=== PATIENT | male | born 1950 | race Caucasian/White ===

== ENCOUNTER → 2017-10-26 | Outpatient (CLI) | payer MEDICARE ==
--- NOTE | 2017-10-26 08:07 | US ---
EXAMINATION TYPE: [place] screen for AAA DATE OF EXAM: 10/26/2017 COMPARISON: NONE CLINICAL HISTORY: 66-year-old male Z13.6 Encounter for screening for cardiovascular. TECHNIQUE: Multiple sonographic images of the abdominal aorta are obtained. FINDINGS: Abdominal Aorta: Proximal: 2.3 x 2.3 cm Mid: 1.9 x 1.9 cm Distal: 1.8 x 2.1 cm Common iliac arteries: right 1.3 x 1.2 cm, left 1.2 x 1.3 cm IMPRESSION: Abdominal aorta without any significant ectasia or evidence for aneurysm.
== END | disposition home or self-care (01) ==
LOC: RADUSWWP 07:34
PROVIDERS: ATTEND Family Medicine
DX: Z13.6 Encounter for screening for cardiovascular disorders (principal)
CPT/HCPCS: 76706

== ENCOUNTER → 2019-06-09 | Outpatient (CLI) | payer MEDICARE ==
--- NOTE | 2019-06-09 08:28 | CT ---
EXAMINATION TYPE: CT brain wo con DATE OF EXAM: 06/09/2019 HISTORY: frequent headaches CT DLP: 1036 mGycm. Automated Exposure Control for Dose Reduction was Utilized. TECHNIQUE: CT scan of the head is performed without contrast. COMPARISON: None. FINDINGS: There is no acute intracranial hemorrhage or midline shift identified. There is diffuse v entricular and sulcal prominence consistent with mild diffuse age-related cerebral atrophy. Tom-whit e matter differentiation is fairly well-maintained. Mild to moderate mucosal thickening involving the inferior frontal and bilateral ethmoid sinuses. Visualized globes are intact bilaterally. IMPRESSION: No acute intracranial hemorrhage or midline shift. There is mild diffuse age-related ce rebral atrophy and chronic paranasal sinus disease.
== END | disposition home or self-care (01) ==
LOC: RADCTMAIN 07:54
PROVIDERS: ATTEND Family Medicine
DX: G31.1 Senile degeneration of brain, not elsewhere classified (principal); J32.8 Other chronic sinusitis
CPT/HCPCS: 70450

== ENCOUNTER → 2023-06-07 | Outpatient (CLI) | payer MEDICARE ==
--- NOTE | 2023-06-08 11:14 | CA ---
Transthoracic Echo Report Name: Parker Mittal Age: 72 Gender: M : 1950 Exam Date: 06/07/2023 14:57 Exam Location: [place] [facility] Ht (in): 72 Wt (lb): 145 Ordering Physician: Nadine Mooney DO Attending/Referring Phys: Alivia Adams [facility] [place] Maria Luisa King RDCS Procedure CPT: Indications: I51.7 CARDIOMEGALY R94.31 Cardiac Hx: Technical Quality: Fair Contrast 1: Total Dose (mL): Contrast 2: Total Dose (mL): MEASUREMENTS (Male / Female) Normal Values 2D ECHO LV Diastolic Diameter PLAX 4.4 cm 4.2 - 5.9 / 3.9 - 5.3 cm LV Systolic Diameter PLAX 3.5 cm IVS Diastolic Thickness 1.2 cm 0.6 - 1.0 / 0.6 - 0.9 cm LVPW Diastolic Thickness 1.1 cm 0.6 - 1.0 / 0.6 - 0.9 cm LV Relative Wall Thickness 0.5 LV Diastolic Volume MOD BP 116.0 cm??? 67 - 155 / 56 - 104 cm??? LV Systolic Volume MOD BP 67.5 cm??? 22 - 58 / 19 - 49 cm??? LV Ejection Fraction MOD BP 41.8 % >= 55 % LV Cardiac Index MOD BP 1789.2 cm???/min???m??? LV Diastolic Volume MOD 4C 112.7 cm??? LV Systolic Volume MOD 4C 67.2 cm??? LV Ejection Fraction MOD 4C 40.4 % LV Cardiac Index MOD 4C 1677.7 cm???/min???m??? LV Diastolic Length 4C 8.7 cm LV Systolic Length 4C 7.6 cm LV Diastolic Volume MOD 2C 106.0 cm??? LV Systolic Volume MOD 2C 60.5 cm??? LV Ejection Fraction MOD 2C 43.0 % LV Cardiac Index MOD 2C 1678.9 cm???/min???m??? LV Diastolic Length 2C 7.6 cm LV Systolic Length 2C 6.7 cm LA Volume 66.3 cm??? 18 - 58 / 22 - 52 cm??? DOPPLER AV Peak Velocity 104.3 cm/s AV Peak Gradient 4.4 mmHg AV Mean Velocity 75.6 cm/s AV Mean Gradient 2.6 mmHg AV Velocity Time Integral 18.4 cm LVOT Peak Velocity 75.0 cm/s LVOT Peak Gradient 2.2 mmHg LVOT Velocity Time Integral 16.5 cm MV Area PHT 3.2 cm??? Mitral E Point Velocity 58.2 cm/s Mitral A Point Velocity 50.7 cm/s Mitral E to A Ratio 1.1 MV Deceleration Time 239.2 ms MV E' Velocity 9.4 cm/s Mitral E to MV E' Ratio 6.2 TR Peak Velocity 216.6 cm/s TR Peak Gradient 18.8 mmHg Right Ventricular Systolic Press 23.8 mmHg FINDINGS Left Ventricle Mildly increased septal wall thickness. Mildly increased left ventricular systolic volume. Moderately decreased left ventricular ejection fraction. Left ventricular ejection fraction is estimated at 40-45 %. There is global decrease in contractility noted ejection fraction is about 40% Right Ventricle Moderate right ventricular dilatation. Right ventricular systolic pressure within normal limits. Right Atrium Normal right atrial size. Left Atrium Mildly increased left atrial volume. Mitral Valve Mitral valve thickened. Mild mitral annular calcification. Both mitral valve leaflets are redundant and there is mild prolapse of anterior mitral leaflet. [id number] mitral regurgitation. Aortic Valve Trileaflet aortic valve. No aortic valve stenosis or regurgitation. Tricuspid Valve Mild tricuspid regurgitation. Myxomatous (redundant) tricuspid valve. Pulmonic Valve Structurally normal pulmonic valve. Trace pulmonic regurgitation. Pericardium No pericardial effusion. Aorta Normal size aortic root and proximal ascending aorta. CONCLUSIONS Mildly enlarged left ventricle with the global decrease in contractility. Redundant mitral and tricuspid valve leaflets with mild prolapse of anterior mitral leaflet with moderate eccentric mitral regurgitation. There is no pericardial effusion. No significant pulmonary hypertension Previewed by: Dr. Jose Rogers MD (Electronically Signed) Final Date: 08 June 2023 11:13
== END | disposition home or self-care (01) ==
LOC: RADECHMAIN 14:50
PROVIDERS: ATTEND Family Medicine
DX: I08.1 Rheumatic disorders of both mitral and tricuspid valves (principal); R53.83 Other fatigue; R94.31 Abnormal electrocardiogram [ECG] [EKG]
CPT/HCPCS: 93306

== ENCOUNTER → 2023-06-17 | Outpatient (CLI) | payer MEDICARE ==
[2023-06-17 16:17] LABS: ALT 18 U/L (10-49); AST 29 U/L (14-35); BUN/Creat Ratio 23.78 Ratio (12.00-20.00); Blood Urea Nitrogen 21.4 mg/dL (9.0-27.0); Calcium 9.6 mg/dL (8.7-10.3); Carbon Dioxide 28.1 mmol/L (21.6-31.8); Chloride 104 mmol/L (96-109); Glucose 88 mg/dL (70-110); LDL Cholesterol,Calculated 55.7 mg/dL (0.0-131.0); Potassium 4.6 mmol/L (3.5-5.5); Sodium 142 mmol/L (135-145); VLDL Calculation 16.02 mg/dL (5.00-40.00)
== END | disposition home or self-care (01) ==
LOC: LABWHC1 10:02
PROVIDERS: ATTEND Student in an Organized Health Care Education/Training Program
DX: I42.9 Cardiomyopathy, unspecified (principal); E78.2 Mixed hyperlipidemia
CPT/HCPCS: 36415; 80048; 80061; 83036; 84450; 84460

== ENCOUNTER → 2023-08-02 | Outpatient (CLI) | payer MEDICARE ==
[2023-08-02 10:26] LABS: NT-Pro-B-Type Natriuretic Pept 60 pg/mL
[2023-08-02 11:28] LABS: African American GFR (CKD) >90 (>60 ml/min/1.73 sqM); Anion Gap 4 mmol/L; Blood Urea Nitrogen 21 mg/dL (9-20); Calcium 9.2 mg/dL (8.4-10.2); Carbon Dioxide 33 mmol/L (22-30); Chloride 102 mmol/L (98-107); Glucose 91 mg/dL (74-99); Non-African American GFR(CKD) 87 (>60 ml/min/1.73 sqM); Potassium 4.5 mmol/L (3.5-5.1); Sodium 139 mmol/L (137-145)
[2023-08-02 12:27] LABS: T4, Free (Free Thyroxine) 1.23 ng/dL (0.78-2.19)
== END | disposition home or self-care (01) ==
LOC: LABWHC1 08:33
PROVIDERS: ATTEND Student in an Organized Health Care Education/Training Program
DX: I42.0 Dilated cardiomyopathy (principal)
CPT/HCPCS: 36415; 80048; 83880; 84439; 84443